=== PATIENT | male | born 1990 | race Caucasian/White ===

== ENCOUNTER 2017-03-22 23:51 | Emergency (ER) | payer OTHER ==
[~2017-03-22] VITALS: Ht 172.7 cm; Wt 72.7 kg
[2017-03-23] MEDS ORDERED: DULO30CA PO (00:01)
[2017-03-23] MEDS ORDERED: PROM50TA4 PO (00:01)
[2017-03-23] MEDS ORDERED: VITA100L PO (00:01)
[2017-03-23] MEDS ORDERED: AMBI5TAB PO (00:01)
[2017-03-23] MEDS ORDERED: SUMA4INJ3 SC (00:01)
[2017-03-23 01:21] VITALS: BP 146/80
== END 2017-03-23 01:25 | disposition home or self-care (01) ==
LOC: EDBD 23:51 → M ED 23:51
DX: N50.9 Disorder of male genital organs, unspecified (principal); Z79.899 Other long term (current) drug therapy; Z88.4 Allergy status to anesthetic agent

== ENCOUNTER → 2017-10-12 | Outpatient (CLI) | payer OTHER ==
[~2017-10-12] MED LIST: METHACHOLINE KIT (J7674) INH
== END ==
LOC: M CARPUL 12:21
DX: R06.02 Shortness of breath (principal)
CPT/HCPCS: J7674